=== PATIENT | female | born 1995 | race African-American/Black ===

== ENCOUNTER 2019-05-22 23:38 | Emergency (ER) | payer OTHER ==
[~2019-05-22] VITALS: Ht 167.6 cm; Wt 83.9 kg
[2019-05-23 00:19] LABS: INFLUENZA A ANTIGEN Negative (Negative); INFLUENZA B ANTIGEN Negative (Negative)
[2019-05-23 00:40] VITALS: BP 131/81
== END 2019-05-23 00:40 | disposition home or self-care (01) ==
LOC: M.ERS 23:38
PROVIDERS: Emergency Medicine
DX: R50.9 Fever, unspecified (principal); J45.909 Unspecified asthma, uncomplicated; Z88.1 Allergy status to other antibiotic agents